=== PATIENT | female | born 1985 | race Caucasian/White ===

== ENCOUNTER 2019-10-30 21:22 | Emergency (ER) | payer MEDICAID ==
[~2019-10-30] VITALS: Ht 162.6 cm; Wt 122.0 kg
[~2019-10-30 21:22] MED LIST: ALBU6.7H9 INH
[2019-10-30 21:31] VITALS: BP 144/102
[2019-10-30] MEDS ORDERED: albuterol 2.5 MG/3 ML nebule NEB ONE (21:50)
[2019-10-30] MEDS ORDERED: PRED20TA PO (22:06)
[2019-10-30] MEDS ORDERED: ALBU18HF2 INH (22:06)
[2019-10-30] MEDS ORDERED: ALB0.5UD IH (22:06)
[2019-10-30] MEDS ORDERED: dexamethasone 4mg tablet PO ONE (22:15)
== END 2019-10-30 22:49 | disposition home or self-care (01) ==
LOC: ER 21:23
DX: J20.9 Acute bronchitis, unspecified (principal); J45.901 Unspecified asthma with (acute) exacerbation; Z98.890 Other specified postprocedural states; Z88.0 Allergy status to penicillin; Z79.899 Other long term (current) drug therapy
CPT/HCPCS: 94640; 99283

== ENCOUNTER 2024-06-12 10:22 | Emergency (ER) | payer MEDICAID ==
[~2024-06-12] VITALS: Ht 165.1 cm; Wt 120.8 kg
[~2024-06-12 10:22] MED LIST changes: +ALBU18HF2 INH; +ALBU6.7H14 INH; -ALBU6.7H9 INH
[2024-06-12] MEDS: ibuprofen tablet 400 MG TABLET PO ONE (13:43)
[2024-06-12] MEDS: sulfamethoxazole/trimethoprim DS (800/160mg) tablet PO ONE (13:43)
[2024-06-12] MEDS: cephalexin 250mg capsule PO ONE (13:43)
[2024-06-12] MEDS: LIDOcaine 1% 30ml preserv. free vial IJ STA (13:52)
[2024-06-12] MEDS ORDERED: IBUP-1984 PO (14:14)
[2024-06-12] MEDS ORDERED: CEPH-585 PO (14:14)
[2024-06-12] MEDS ORDERED: SULF1TAB49 PO (14:14)
[2024-06-12 14:35] VITALS: BP 125/62; PULSE 49; RESP 16; TEMP 98.4; O2SAT 95
== END 2024-06-12 14:38 | disposition home or self-care (01) ==
LOC: ER 10:23
DX: L02.211 Cutaneous abscess of abdominal wall (principal); Z88.0 Allergy status to penicillin; Z79.899 Other long term (current) drug therapy; Z79.1 Long term (current) use of non-steroidal anti-inflammatories (NSAID); Z79.2 Long term (current) use of antibiotics; Z98.890 Other specified postprocedural states
CPT/HCPCS: 10060; 99284; A6266; A6258; A6449